=== PATIENT | female | born 1975 | race Caucasian/White ===

== ENCOUNTER 2023-10-01 17:51 | Emergency (ER) | payer SELFPAY ==
[~2023-10-01] VITALS: Ht 162.6 cm; Wt 55.0 kg
[2023-10-01 18:02] VITALS: BP 139/80; PULSE 20; RESP 20; O2SAT 95
[2023-10-01 21:06] LABS: Basophils # (auto) 0.1 10 ^3/uL (0-0.2); Basophils % (auto) 0.6 % (0.0-2.0); Eosinophils # (auto) 0.1 10 ^3/uL (0-0.8); Hematocrit 38.5 % (36.0-46.0); Lymphocytes # (auto) 3.3 10 ^3/uL (0.4-5.4); Mean Corpuscular Hemoglobin 28.5 pg (28.0-32.0); Mean Corpuscular Hgb Conc. 33.7 g/dL (32.0-36.0); Mean Corpuscular Volume 84.6 fL (80.0-100.0); Monocytes # (auto) 0.6 10 ^3/uL (0-1.3); Neutrophils # (auto) 7.7 10 ^3/uL (1.6-8.6); Neutrophils % (auto) 65.4 % (37.0-80.0); Nucleated Red Blood Cells % 0.1 %; Red Blood Cells 4.55 10^6/uL (4.0-5.20); White Blood Cell 11.8 10^3/uL (4.4-10.8)
[2023-10-01 21:22] LABS: Alanine Aminotransferase 13 U/L (7-40); Albumin 4.3 g/dL (3.2-4.8); Alkaline Phosphatase 67 U/L (46-116); Anion Gap 5 (5-15); Aspartate Aminotransferase 9 U/L (13-40); BUN/Creatinine Ratio 16.5 (10.0-20.0); Blood Alcohol < 3.0 mg/dL (<10); Blood Urea Nitrogen 13 mg/dL (9-23); Calcium 9.4 mg/dL (8.5-10.1); Carbon Dioxide 26 mmol/L (20-30); Chloride 110 mmol/L (98-107); Glucose 83 mg/dL (74-106); Potassium 3.7 mmol/L (3.5-5.1); Sodium 141 mmol/L (136-145)
[2023-10-01 21:23] LABS: Bilirubin, Total 0.5 mg/dL (0.2-1.0)
[2023-10-02] MEDS ORDERED: ZOFR4T PO (04:51)
== END 2023-10-01 23:16 | disposition home or self-care (01) ==
LOC: EDBD → ER 17:51 → EDBD 17:51 → ER 23:16
DX: R46.89 Other symptoms and signs involving appearance and behavior (principal); Z59.00 Homelessness unspecified
CPT/HCPCS: 36415; 80053; 80320; 84484; 85025

== ENCOUNTER 2023-10-02 01:19 | Emergency (ER) | payer SELFPAY ==
[~2023-10-02] VITALS: Ht 167.6 cm; Wt 51.2 kg
[2023-10-02] MEDS ORDERED: ZOFR4T PO (04:51)
[2023-10-02] MEDS: ONDANSETRON ODT 4 MG TAB PO ONE (05:35)
[2023-10-02 05:37] VITALS: BP 110/75; PULSE 81; RESP 16; TEMP 97.8; O2SAT 98
== END 2023-10-02 05:37 | disposition home or self-care (01) ==
LOC: ER 01:19
DX: R11.10 Vomiting, unspecified (principal); R10.2 Pelvic and perineal pain
CPT/HCPCS: 36415; 84702; 99283; Q0162